=== PATIENT | male | born 1955 | race Caucasian/White ===

== ENCOUNTER 2018-01-08 11:48 | Emergency (ER) | payer OTHER ==
[~2018-01-08] VITALS: Ht 177.8 cm; Wt 90.7 kg
[~2018-01-08 11:48] MED LIST: AUGMENTIN 875-1 EACH PO; CLONAZEPAM0.5 M2 PO; CYCLOBENZAPRINE10 M1 PO; ENDOCET 325 MG-1 TA1 PO; FLEXERIL10 MG PO; IBUPROFEN800 M1 PO; MULTI-DAY VITA1 EACH PO; NEXIUM 40MG40 MG PO; NEXIUM40 M1 PO; PERCOCET 325 MG1 TA2 PO; PERCOCET 325 MG1 TA3 PO; PREDNICOT10 MG PO; PREDNISONE 10MG10 M1 PO; SEA-OMEGA 50 C1 EACH PO; SIMVASTATIN20 MG PO; SIMVASTATIN5 M2 PO; TORADOL10 MG PO; VALIUM5 M1 PO; VITAMIN E100 UNI2 PO
--- NOTE | 2018-01-08 11:57 | ED MVC/FALL/TRAUMA COMPLAINT ---
History of Present Illness General Chief Complaint: General Adult Stated Complaint: SLIP AND FALL, RIGHT UPPER POST. THIGH PAIN Source: patient, family, old records, EMS Exam Limitations: no limitations Vital Signs & Intake/Output Vital Signs & Intake/Output Vital Signs Date Time Temp Pulse Resp B/P B/P Pulse O2 O2 Flow FiO2 Mean Ox Delivery Rate 01/08 1510 97.7 59 16 129/73 99 01/08 1411 100 Room Air 01/08 1156 97.7 58 18 134/76 100 Room Air Allergies Coded Allergies: NO KNOWN ALLERGIES (08/16/16) Reconcile Medications Cyclobenzaprine HCl 10 MG TABLET 1 TAB PO 4 TIMES/DAY PRN MUSCLE SPASM Cyclobenzaprine HCl 5 MG TABLET 1 TAB PO TIDPRN PRN pain Esomeprazole (Nexium) 40 MG CAPSULE.DR 1 CAP PO BID gerd Fish Oil (Sea-[place] 50 Capsule) 1 EACH CAPSULE 1 CAP PO DAILY SUPPLEMENT ( Reported) Ibuprofen 800 MG TABLET 1 TAB PO TID PRN pain Multivitamin (Multi-Day Vitamins) 1 EACH TABLET 1 TAB PO DAILY SUPPLEMENT ( Reported) Oxycodone HCl/Acetaminophen (Percocet 5-325 MG Tablet) 5 MG-325 MG TABLET 1 TAB PO BID pain Simvastatin (Simvastatin*) 5 MG TABLET HIGH CHOLESTEROL (Reported) Vitamin E Mixed (Vitamin E) (Unknown Strength) TABLET (Unknown Dose) PO DAILY SUPPLEMENT (Reported) Triage Nurses Notes Reviewed? yes Onset: Abrupt Duration: hour(s): (1), constant Timing: recent history Severity: moderate Severity Numbers: 10 Injuries/Fall Location: pelvis (RIGHT) Method of Injury: fall Loss of Consciousness: no loss of consciousness No Modifying Factors: none Associated Symptoms: DENIES HPI: 62 year old male with history of paroxysmal afib presents [facility] for evalu s/p doctors hospital trip and fall when he slipped on water and reports he did a splint injuring his right hip, now c/o 10/10 r hip and buttocks pain rad into right thigh. He denies hitting his head there is no loss of consciousness he denies any neck or back pain no arm injury chest pain abdominal pain. He denies any right knee or right foot or ankle pain. No left leg injury. No modifying factors or associated symptoms otherwise. (Robin JURADO,Gary) Past History Travel History Traveled to [place] past 21 day No Medical History Any Pertinent Medical History? see below for history Neurological: NONE EENT: NONE Cardiovascular: AFIB, hyperlipidemia Respiratory: NONE Gastrointestinal: GERD Hepatic: NONE Renal: NONE Musculoskeletal: chronic back pain Psychiatric: NONE Endocrine: NONE Blood Disorders: NONE Cancer(s): NONE SPRAY MACHINE TENDER/Reproductive: NONE Tetanus Vaccine: 04/23/16 Surgical History Surgical History: non-contributory Psychosocial History Who do you live with Spouse What is your primary language Sudanese Family History Hx Contributory? No (Gary Stroud) Review of Systems Review of Systems Constitutional: Reports: see HPI. Comments Review of systems: See HPI, All other systems negative. Constitutional, no chills no fever, HEENT: no sore throat no congestion Cardiovascular: No chest pain Skin: no rashes, no change in skin Respiratory: No dyspnea no cough no sputum GI: No nausea no vomiting Muscle skeletal: joint pain, no back pain, no neck pain, Neurologic: , no headache Heme/endocrine: No bruising Immunology: No lymphadenopathy (Gary Stroud) Physical Exam Physical Exam General Appearance: well developed/nourished, alert, awake Comments: Well-developed well-nourished person in no acute distress HEENT: Normal EENT exam; PERRL, EOMI, HEAD is atraumatic. moist mucous membranes. Neck: Supple, nontender normal range of motion Back: Nontender, atraumatic no ecchymosis full range of motion Cardiovascular: Regular rate and rhythms no murmurs rubs or gallops, normal JVP Respiratory: Chest nontender.There were no bony deformities, no asymmetry. No respiratory distress. Patient speaking in full complete sentences. Breath sounds clear to auscultation bilaterally: NO W/R/R Abdomen: Soft, nontender nondistended, no appreciable organomegaly. Normal bowel sounds. No rebound/guarding, No appreciable enlargement of the abdominal aorta, No ascites. upper Extremity: No edema, full range of motion of extremities Hip/Pelvis: Atraumatic/Stable. lROM secondary to pain and there is no external rotation or shortening, the posterior aspect of the right leg is atraumatic no ecchymosis no hematoma. No pain with pelvic compression Knee: Atraumatic/stable. FROM. No joint swelling, no effusion. No laxity. Negative renee/anterior drawer test. No pain with ROM Leg: Atraumatic. Nontender. No edema, 5 out of 5 strength in the lower extremity, normal dorsiflexion of great toe bilaterally, gross sensation is intact Ankle/Foot: Atraumatic/stable. Skin intact. FROM. No swelling, no effusion. No laxity on exam Pulses: Normal/equal DP/PT pulses bilaterally. Brisk cap refill Neuro: Alert oriented x3, motor sensory normal, cranial nerves II through XII grossly intact. There were no obvious focal neurologic abnormalities. Skin: No appreciable rash on exposed skin, skin is warm and dry. Psych: Mood and affect is normal, memory and judgment is normal. Core Measures ACS in differential dx? No CVA/TIA Diagnosis No Sepsis Present: No Sepsis Focused Exam Completed? No (Robin JURADO,Gary) Progress Differential Diagnosis: abd injury, C/T/L spine injury, ext injury, ICH, pelvis injury, spinal cord injury Plan of Care: Orders Procedure Date/time Status Durable Medical Equipment 01/08 1553 Active Current Medications Sig/Vazquez Start time Last Medication Dose Stop Time Status Admin Hydromorphone HCl 1 MG ONCE ONE 01/08 1215 CAN (Dilaudid) 01/08 1216 Patient medicated with morphine 4 mg IM x-rays ordered Patient feeling improved in regards to pain pending x-ray results I discussed with the patient and his family his x-ray results ambulation was attempted without success secondary to pain CAT scan or patient medicated Percocet and Flexeril. Case discussed with Dr. Abdi agrees with plan Discussed with the patient is CAT scan results and Judah wrap was applied to the right thigh by myself. Patient was able to get up and crutch and bear weight on the leg without difficulty return precautions were discussed at length he'll follow-up with his orthopedist this week return precautions were discussed at length cleared for discharge Diagnostic Imaging: Viewed by Me: Radiology Read. Discussed w/RAD: Radiology Read. Radiology Impression: PATIENT: JUANA GRAY PRESENT AGE: 62 PATIENT ACCOUNT NO: [id number] : 56 LOCATION: [facility] ORDERING PHYSICIAN: Gary JURADO SERVICE DATE: 01/08/18-1205 EXAM TYPE: RAD - XRY-AP PELVIS; XRY-FEMUR, 2 VIEWS RIGHT; XRY-HIP 2-3 VIEWS, RIGHT EXAMINATION: XR HIP, RIGHT XR PELVIS XR FEMUR, RIGHT CLINICAL INFORMATION: 62- year-old male history of fall, right thigh pain. Suspected fracture. COMPARISON: None TECHNIQUE: Two views of the right hip. Single frontal view of the pelvis and 2 views of the right femur. FINDINGS: Pelvis, Right Hip, and Right Femur: Bones and soft tissues are normal. No fracture. Alignment is anatomic. Hip joint space is maintained. Incidental note is made of mild osteoarthrosis of the right hip, enthesopathy at the insertional site of the quadriceps tendon to the superior pole of the patella and mild osteoarthrosis of the left hip as well on the frontal view of the pelvis. IMPRESSION: No radiographic evidence of any displaced pelvic, right hip and right femoral fracture. DICTATED BY: Alistair Reyes MD DATE/TIME DICTATED:01/08/181315 SUPERVISOR CABINETMAKER:DOLLY DATE/ TIME TRANSCRIBED:01/08/181315 CONFIDENTIAL, DO NOT COPY WITHOUT APPROPRIATE AUTHORIZATION. <Electronically signed in Other Vendor System> SIGNED BY: Alistair Reyes MD 01/08/18 1333, PATIENT: JUANA GRAY PRESENT AGE: 62 PATIENT ACCOUNT NO: [id number] : 56 LOCATION: [facility] ORDERING PHYSICIAN: Gary JURADO SERVICE DATE: 01/08/18 EXAM TYPE: CAT - CT PELVIS WO IV CONTRAST EXAMINATION: CT PELVIS WITHOUT CONTRAST CLINICAL INFORMATION: Right hip pain. Unable to fully ambulate. COMPARISON: X-rays from today. TECHNIQUE: Helical scanning was performed with submillimeter collimation through the pelvis. Sagittal and coronal multiplanar 2-D reconstructions were obtained. DLP: 727.21 mGy-cm. FINDINGS: In the right hip, there is normal alignment. Oikp-ju-tqkqnnbt arthritic change is present, with marginal osteophytes, subchondral lucencies. No focal lucency or cortical malalignment is noted in the proximal femur or the acetabulum to indicate a discrete fracture. Pubic rami are intact without evidence of discrete fracture. Moderate symphysis pubis degeneration. Mtge-xy-zzezmttr left hip joint arthritis, with mild joint space loss, osteophytes, subchondral cysts. Mild bilateral SI joint arthritis. Visualized pelvic bones in the proximal left femur are intact without discrete fracture identified. There is spurring from bilateral ischial tuberosities. Mild degenerative changes in the visualized lower lumbar spine. No pathologically enlarged lymph nodes are seen in the inguinal regions or pelvis. Bladder is underdistended, within normal limits. No acute findings identified within the pelvis. IMPRESSION: 1. Fcdw-ea-unzftjdy bilateral hip joint arthritis. 2. No discrete fracture is identified of the right hip by CT. Close clinical correlation is recommended. If there is persistent concern for radiographically occult fracture, further evaluation with MRI can be obtained as clinically warranted. 3. Moderate symphysis pubis degeneration. 4. Mild bilateral SI joint arthritis. DICTATED BY: Shamar Murphy MD DATE/TIME DICTATED:01/08/181502 SUPERVISOR CABINETMAKER:DOLLY DATE/TIME TRANSCRIBED:01/08/181502 CONFIDENTIAL, DO NOT COPY WITHOUT APPROPRIATE AUTHORIZATION. <Electronically signed in Other Vendor System> SIGNED BY: Shamar Murphy MD 01/08/18 1548 (Gary Stroud) Departure Departure Time of Disposition: 1600 Disposition: HOME OR SELF CARE Condition: Stable Clinical Impression Primary Impression: Muscle strain Secondary Impressions: Leg strain Referrals: Avila Dale DO (PCP/Family) Additional Instructions: Follow up with your orthopedist at [facility] this week. rest, ice, judah wrap and crutches. percocet and flexeril as directed. use caution as these medications may make you drowsy. return with any concerns Departure Forms: Customer Survey General Discharge Information Prescriptions: Current Visit Scripts Oxycodone HCl/Acetaminophen (Percocet 5-325 MG Tablet) 1 TAB PO BID #10 TAB Cyclobenzaprine HCl 1 TAB PO TIDPRN PRN pain #10 TAB (Gary Stroud) PA/AUTOMOBILE REPOSSESSOR Co-Sign Statement Statement: ED Attending supervision documentation- [] I saw and evaluated the patient. I have also reviewed all the pertinent lab results and diagnostic results. I agree with the findings and the plan of care as documented in the PA's/AUTOMOBILE REPOSSESSOR's documentation. [X] I have reviewed the ED Record and agree with the PA's/AUTOMOBILE REPOSSESSOR's documentation. [] Additions or exceptions (if any) to the PAs/AUTOMOBILE REPOSSESSOR's note and plan are summarized below: [] (Nicholas Abdi DO)
--- NOTE | 2018-01-08 13:33 | RADIOLOGY REPORT ---
EXAMINATION: XR HIP, RIGHT XR PELVIS XR FEMUR, RIGHT CLINICAL INFORMATION: 62-year-old male history of fall, right thigh pain. Suspected fracture. COMPARISON: None TECHNIQUE: Two views of the right hip. Single frontal view of the pelvis and 2 views of the right femur. FINDINGS: Pelvis, Right Hip, and Right Femur: Bones and soft tissues are normal. No fracture. Alignment is anatomic. Hip joint space is maintained. Incidental note is made of mild osteoarthrosis of the right hip, enthesopathy at the insertional site of the quadriceps tendon to the superior pole of the patella and mild osteoarthrosis of the left hip as well on the frontal view of the pelvis. IMPRESSION: No radiographic evidence of any displaced pelvic, right hip and right femoral fracture.
[2018-01-08 15:10] VITALS: BP 129/73
--- NOTE | 2018-01-08 15:42 | CT SCAN REPORT ---
EXAMINATION: CT PELVIS WITHOUT CONTRAST CLINICAL INFORMATION: Right hip pain. Unable to fully ambulate. COMPARISON: X-rays from today. TECHNIQUE: Helical scanning was performed with submillimeter collimation through the pelvis. Sagittal and coronal multiplanar 2-D reconstructions were obtained. DLP: 727.21 mGy-cm. FINDINGS: In the right hip, there is normal alignment. Lxtq-nv-drjcicje arthritic change is present, with marginal osteophytes, subchondral lucencies. No focal lucency or cortical malalignment is noted in the proximal femur or the acetabulum to indicate a discrete fracture. Pubic rami are intact without evidence of discrete fracture. Moderate symphysis pubis degeneration. Bjfk-yd-sukbmafi left hip joint arthritis, with mild joint space loss, osteophytes, subchondral cysts. Mild bilateral SI joint arthritis. Visualized pelvic bones in the proximal left femur are intact without discrete fracture identified. There is spurring from bilateral ischial tuberosities. Mild degenerative changes in the visualized lower lumbar spine. No pathologically enlarged lymph nodes are seen in the inguinal regions or pelvis. Bladder is underdistended, within normal limits. No acute findings identified within the pelvis. IMPRESSION: 1. Myip-xg-yeuqtflt bilateral hip joint arthritis. 2. No discrete fracture is identified of the right hip by CT. Close clinical correlation is recommended. If there is persistent concern for radiographically occult fracture, further evaluation with MRI can be obtained as clinically warranted. 3. Moderate symphysis pubis degeneration. 4. Mild bilateral SI joint arthritis.
[2018-01-08] MEDS ORDERED: PERCOCET 5-3251 EACH PO (16:02)
[2018-01-08] MEDS ORDERED: CYCLOBENZAPRINE5 M2 PO (16:02)
== END 2018-01-08 16:00 ==
LOC: ERH 11:48
DX: S76.911A Strain of unspecified muscles, fascia and tendons at thigh level, right thigh, initial encounter (principal); W01.0XXA Fall on same level from slipping, tripping and stumbling without subsequent striking against object, initial encounter; Y92.9 Unspecified place or not applicable; Y93.9 Activity, unspecified
CPT/HCPCS: 72170; 73502-RT; 73552; 96372